=== PATIENT | male | born 1980 | race Caucasian/White ===

== ENCOUNTER 2021-05-12 11:18 | Emergency (ER) | payer BC ==
[~2021-05-12] VITALS: Ht 170.2 cm; Wt 53.5 kg
[~2021-05-12 11:18] MED LIST: INSU100S22 SUBQ; MAGN400T7 PO; METF-988 PO
[2021-05-12 11:22] VITALS: BP 146/84
--- NOTE | 2021-05-12 11:26 | NUR ---
PT AMBULATED TO ER BED 4 WITH A STEADY GAIT.
--- NOTE | 2021-05-12 11:39 | NUR ---
40 Y/O MALE C/O RIGHT EYE REDNESS & IRRITATION 8/10 DESCRIBES BURNING X 2 DAYS. DENIES TRAUMA/INJURY. PT STATES HE HAS HAD INTERMITTENT REDNESS TO RIGHT EYE [id number], TODAY +BLURRY VISION. DENIES N/V, DENIES FEVER/CHILLS. PT BLOOD SUGAR 312 AT THIS TIME IN TRIAGE. PMH: MICHAEL BOSCH
--- NOTE | 2021-05-12 12:30 | NUR ---
DR WHEELER AT BEDSIDE EXAMINING PT
[2021-05-12] MEDS ORDERED: METF-988 PO (12:42)
[2021-05-12] MEDS ORDERED: INSU100S22 SUBQ (12:42)
[2021-05-12] MEDS ORDERED: LORA10TA19 PO (12:42)
[2021-05-12] MEDS ORDERED: GLIP10TA12 PO (12:42)
[2021-05-12] MEDS ORDERED: DIPH25TA53 PO (12:42)
--- NOTE | 2021-05-12 13:00 | NUR ---
Patient discharged with v/s stable. Written and verbal after care instructions given and explained. Patient alert, oriented and verbalized understanding of instructions. Ambulatory with steady gait. All questions addressed prior to discharge. ID band removed. Patient advised to follow up with PMD. Rx of BENADRYL,CLARITIN, GLIPIZDE, LANTUS, METFORMIN, MAGNESIM OXIDE given. Patient educated on indication of medication including possible reaction and side effects. Opportunity to ask questions provided and answered.
[2021-05-12 13:10] VITALS: BP 135/72
== END 2021-05-12 13:00 | disposition home or self-care (01) ==
LOC: MED 11:18
DX: H10.11 Acute atopic conjunctivitis, right eye (principal); E11.9 Type 2 diabetes mellitus without complications; Z79.4 Long term (current) use of insulin; Z79.899 Other long term (current) drug therapy
CPT/HCPCS: 99283